=== PATIENT | female | born 2005 | race Caucasian/White ===

== ENCOUNTER 2025-04-27 17:41 | Emergency (ER) | payer OTHER ==
[~2025-04-27] VITALS: Ht 162.6 cm; Wt 62.0 kg
[2025-04-27 17:43] VITALS: O2SAT 98
[2025-04-27 18:29] LABS: CREATININE 0.9 mg/dL (0.6-1.0)
[2025-04-27] MEDS: SODIUM CHLORIDE 0.9% 1,000 ML IV ONE (18:29)
[2025-04-27 18:30] LABS: UREA NITROGEN BLOOD 7 mg/dL (9-23)
[2025-04-27] MEDS: ONDANSETRON HCL 4MG/2ML INJ IV ONE (18:30)
[2025-04-27 18:31] LABS: ASPARTATE AMINOTRANSFERASE 18 IU/L (<34)
[2025-04-27 18:32] LABS: BILIRUBIN DIRECT 0.1 mg/dL (<=3.0); BILIRUBIN TOTAL 0.5 mg/dL (0.1-1.0); PROTEIN TOTAL 7.2 g/dL (6.0-8.3)
[2025-04-27 18:37] LABS: BASOPHILS % 0.8 % (0.0-2.0); EOSINOPHILS % 1.1 % (0.0-5.0); HEMATOCRIT. 43.0 % (36.0-48.0); HEMOGLOBIN. 14.2 g/dL (12.0-16.0); LYMPHOCYTES % 31.1 % (20.0-50.0); MEAN PLATELET VOLUME 9.0 fl (7.4-10.4); MONOCYTES % 5.0 % (2.0-8.0); NEUTROPHILS % 62.0 % (40.0-76.0); PLATELET 258 x1000/uL (130-400); RED BLOOD CELL COUNT 5.00 mill/uL (4.2-5.4); RED CELL DISTRIBUTION WIDTH 14.6 % (11.6-14.6)
[2025-04-27 19:01] LABS: CLARITY URINE CLEAR (CLEAR); COLOR URINE YELLOW (YELLOW); GLUCOSE URINE NEGATIVE (NEGATIVE); KETONES URINE 1+ (NEGATIVE); LEUKOCYTE ESTERASE URINE 2+ (NEGATIVE); NITRITE URINE NEGATIVE (NEGATIVE); OCCULT BLOOD URINE NEGATIVE (NEGATIVE); PH URINE 7.5 (4.5-8.0); PROTEIN URINE NEGATIVE (NEGATIVE); SPECIFIC GRAVITY URINE 1.018 (1.005-1.030); UROBILINOGEN URINE 0.2 E.U./dL (0.2-1.0)
[2025-04-27 19:18] LABS: BACTERIA URINE 1+; RBC URINE 0-2 /hpf (0-2); SQUAMOUS EPITHELIAL CELL URINE 1+ /lpf (RARE/1+); WBC URINE 0-2 /hpf (0-2)
[2025-04-27] MEDS ORDERED: NITR-87 MT (20:46)
[2025-04-27 21:04] VITALS: BP 104/61; PULSE 82; RESP 18; TEMP 36.8; O2SAT 98
== END 2025-04-27 21:05 | disposition home or self-care (01) ==
LOC: ER 17:41
DX: R11.2 Nausea with vomiting, unspecified (principal); F41.9 Anxiety disorder, unspecified
CPT/HCPCS: 99283; 96374; 96361; 80076; 80048; 81003; 81025; 83690; 85025; 36415; J2405; J7030